=== PATIENT | male | born 1940 | race Caucasian/White ===

== ENCOUNTER 2018-03-24 08:16 | Inpatient (IN) | payer OTHER ==
[~2018-03-24] VITALS: Ht 182.9 cm; Wt 104.8 kg
[~2018-03-24 08:16] MED LIST: LOW DOSE ASPIRI81 M1 PO; NITROGLYCERIN0.4 MG SL; TOPROL XL25 MG PO; ZOCOR40 MG PO
[2018-03-24 08:52] VITALS: BP 142/67
--- NOTE | 2018-03-24 11:19 | EKG ---
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1940 Requested By: Ismael Marshall Order Number: [id number] Reading MD: Ismael Marshall Measurements Intervals [place] Rate: 65 P: [place]: QRS: 52 QRSD: 125 T: 1 QT: 388 QTc: 404 Interpretive Statements Atrial flutter IVCD, consider atypical RBBB ST elevation, consider inferior injury No previous ECG available for comparison Electronically Signed On 03-24-2018 11:19:17 CDT by Ismael Marshall [email or web address] <ELECTRONICALLY SIGNED> By: Ismael Marshall MD, [facility] 03/24/18 1119 6 6 Ismael Marshall MD, [facility] /EPI
[2018-03-24 12:00] VITALS: BP 144/82
--- NOTE | 2018-03-24 13:37 | NUR ---
PT A DIRECT ADMIT AROUND 0830 PT IS ALERT AND ORIENTED X 4 PT DENIES PAIN OR SOA ON RA, PT IS UP AD NASIR PT IS NOT A FALL RISK, PT IS AFLUTTER ON MONITOR, PT IS ADMITTED FOR SOTALOL LOADING GAVE FIRST DOSE OF SOTALOL, CARDIOLOGY CONSULTED ORDERED PT FOR JUDITH/CARDIOVERSION ON MARCH 26, WILL CONTINUE TO MONITOR
[2018-03-24 16:00] VITALS: BP 129/58
[2018-03-24 20:00] VITALS: BP 119/80
[2018-03-25] VITALS: BP 124/69
[2018-03-25 04:00] VITALS: BP 146/59
--- NOTE | 2018-03-25 07:25 | NUR ---
ASSUMED PT CARE AT 1930. NURSING ASSESSMENT COMPLETED AT START OF SHIFT. PT VOICED NO CONCERNS. 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 PT UP AD NASIR. CALL LIGHT WITHIN REACH. HOURLY ROUNDING COMPLETED.
[2018-03-25 08:00] VITALS: BP 152/86
--- NOTE | 2018-03-25 11:04 | EKG ---
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1940 Requested By: Ismael Marshall Order Number: [id number] Reading MD: Jose L Padgett Measurements Intervals Catherine Rate: 77 P: [place]: QRS: 89 QRSD: 117 T: 12 QT: 376 QTc: 426 Interpretive Statements Atrial flutter with varied AV block, Nonspecific intraventricular conduction delay Baseline wander in lead(s) V1 Compared to ECG 03/24/2018 09:17:32 No significant changes Electronically Signed On 03-25-2018 11:03:52 CDT by Jose L Padgett [email or web address] <ELECTRONICALLY SIGNED> By: Jose L Padgett MD, [facility] 03/25/18 1103 1 08 Jose L Padgett MD, [facility] /EPI
[2018-03-25 11:14] VITALS: BP 132/89
--- NOTE | 2018-03-25 13:15 | NUR ---
ASSUMED PT CARE AT 0700 PT IS ALERT AND ORIENTED X 4 PT DENIES PAIN OR SOA ON RA, PT IS UP AD NASIR PT IS NOT A FALL RISK, PT IS AFLUTTER ON THE MONITOR, PT WILL BE NPO AT MIDNIGHT FOR PROCEDURE TOMORROW, PT IS PLESANT AND COOPERATIVE, WILL CONTINUE TO MONITOR
--- NOTE | 2018-03-25 15:12 | NUR ---
Pt is A&O. Resides at home with his . Active and independent. No DME. Hx of HH in 2010. No hx of SNF. Goal is to dc home, no needs anticipated.
[2018-03-25 15:15] VITALS: BP 105/71
[2018-03-25 20:00] VITALS: BP 131/78
[2018-03-26] VITALS (16 sets, daily range): BP systolic 98–174; BP diastolic 59–108
--- NOTE | 2018-03-26 03:56 | NUR ---
ASSUMED PT CARE AT 1930. NURSING ASSESSMENT COMPLETED AT START OF SHIFT. PT VOICED NO CONCERNS. 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 DENIES CHEST PAIN. NPO AFTER MIDNIGHT FOR JUDITH WITH CARDIOVERSION. CALL LIGHT WITHIN REACH.
--- NOTE | 2018-03-26 07:30 | NUR ---
CHANGE OF SHIFT, BEDSIDE REPORT GIVEN PATIENT SEEN IN BED ANS REATING ASSUMED PATIENT CARE
[2018-03-26 08:59] LABS: HEMATOCRIT 49.5 % (42.0-52.0); HEMOGLOBIN 16.6 gm/dL (14.0-18.0); MCH 30.5 pg (26.0-34.0); MCHC 33.5 g/dL (28.0-37.0); MCV 91.1 fL (80.0-100.0); MPV 8.9 fl. (7.2-11.1); RBC 5.43 mil/uL (4.50-6.00); RDW-CV 13.9 % (10.5-14.5); WBC 6.9 thou/uL (4.0-11.0)
[2018-03-26 09:11] LABS: CALCIUM 8.8 mg/dL (8.5-10.1); CREATININE 1.3 mg/dL (0.6-1.3); POTASSIUM 3.8 mmol/L (3.5-5.1)
[2018-03-26 09:16] LABS: ALBUMIN 3.6 g/dL (3.4-5.0); TOTAL PROTEIN 6.9 g/dL (6.4-8.2)
[2018-03-26 09:17] LABS: APTT 30.2 Seconds (25.0-31.3); INR 1.1; PROTIME 11.6 Seconds (9.20-11.50)
--- NOTE | 2018-03-26 12:37 | EKG ---
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1940 Requested By: Ismael Marshall Order Number: [id number] Reading MD: Ismael Marshall Measurements Intervals [place] Rate: 96 P: [place]: QRS: 68 QRSD: 119 T: 55 QT: 412 QTc: 521 Interpretive Statements Atrial flutter Incomplete right bundle branch block Probable anteroseptal infarct, old ST elevation, consider inferior injury Compared to ECG 03/25/2018 08:12:59 Incomplete right bundle-branch block now present Myocardial infarct finding now present ST (T wave) deviation now present Intraventricular conduction delay no longer present Electronically Signed On 03-26-2018 12:37:03 CDT by Ismael Marshall [email or web address] <ELECTRONICALLY SIGNED> By: Ismael Marshall MD, FACC 03/26/18 1237 08 08 Ismael Marshall MD, FACC /EPI
--- NOTE | 2018-03-26 14:35 | TEE ---
[place] [address] TRANSESOPHAGEAL ECHOCARDIOGRAM Name: KENDALL WALKER Room: [address] IN [facility]#: [id number] Admission: 03/24/18 Attend Phys: Ismael Marshall, Discharge: Date of : 42 Date of Service: 03/26/18 1434 Report #: [id number] THIS REPORT FOR: //name// APPROVED REPORT Study performed: 03/26/2018 12:33:07 EXAM: Transesophageal Echocardiogram Patient Location: In-Patient Room #: [facility] Status: routine BSA: 2.27 HR: 86 bpm BP: 144/68 mmHg Rhythm: Atrial Fibrillation Other Information Study Quality: Good Indications Atrial Fibrillation Echo Enhancing Agent Indication: Rule out Shunt Agent(s) / Amount(s) Used: Agitated Saline 10 cc Procedure After obtaining informed consent, patient underwent transesophageal echo in the [employer]. Type of Sedation : Conscious Sedation Sedation was administered by Agueda Correa RN. Sedation start time: 1256 Case end Time: 1309 Sedation was achieved intravenously with: Propofol (250) Transesophageal probe was inserted and advanced into esophagus without difficulty by Ismael Marshall MD, FACC. Echo enhancement indication: R/O Septal defect. Echo enhancement agent administered: Agitated Saline The JUDITH was performed without complications. Synchronized Cardioversion acheived with 250 Joules after 1 attempt(s). Rhythm following Synchronized Cardioversion: Normal Sinus Rhythm Throughout the procedure, the blood pressure, pulse oximetry, cardiac rhythm, and rate were monitored. The patient tolerated the procedure without [place] [address] TRANSESOPHAGEAL ECHOCARDIOGRAM Name: KENDALL WALKER Room: [address] [facility].#: [id number] Admission: 03/24/18 Attend Phys: Ismael Marshall, Discharge: Date of : 42 Date of Service: 03/26/18 1434 Report #: [id number] from conscious sedation was uneventful and vital signs were stable. Left Ventricle The left ventricle is normal size. Paradoxical septal motion consistent with post-operative state.Global LV dysfunction, mild. There is normal left ventricular wall thickness. Left ventricular systolic function is mildly decreased. No left ventricle thrombus noted on this study. LVEF is 45-50%. Right Ventricle The right ventricle is normal size. The right ventricular systolic function is normal. Atria No thrombus is visualized in the left atrium or appendage.Doppler evaluation reveals flutter waves. Interatrial septum is intact without evidence of ASD or PFO. Right atrium is dilated. Aortic Valve The aortic valve is normal in structure. No aortic regurgitation is present. There is no aortic valvular stenosis. Mitral Valve The mitral valve is normal in structure. Moderate mitral regurgitation. No evidence of mitral valve stenosis. Tricuspid Valve The tricuspid valve is normal in structure. Mild to moderate tricuspid regurgitation. Pulmonic Valve The pulmonary valve is normal in structure. There is no pulmonic valvular regurgitation. Great Vessels The aortic root is normal in size. Pericardium There is no pericardial effusion. <Conclusion> LVEF is 45-50%. Paradoxical septal motion consistent with post-operative state.Global LV dysfunction, mild. [place] [address] TRANSESOPHAGEAL ECHOCARDIOGRAM Name: KENDALL WALKER Room: [address] IN M.R.#: [id number] Admission: 03/24/18 Attend Phys: Ismael Marshall, Discharge: Date of : 42 Date of Service: 03/26/181433 Report #: [id number] No evidence of mitral valve stenosis. Mild to moderate tricuspid regurgitation. Interatrial septum is intact without evidence of ASD or PFO. No thrombus is visualized in the left atrium or appendage.Doppler evaluation reveals flutter waves. <ELECTRONICALLY SIGNED> By: Ismael Marshall MD, [facility] 03/26/18 1434 33 1434 Ismael Marshall MD, FACC /INF
[2018-03-26] MEDS ORDERED: XARELTO20 MG PO (16:34)
[2018-03-26] MEDS ORDERED: SORINE 80 MG TA80 M1 PO (16:35)
--- NOTE | 2018-03-26 16:41 | EKG ---
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1940 Requested By: Ismael Marshall Order Number: [id number] Reading MD: Ismael Marshall Measurements Intervals [place] Rate: 71 P: 68 OK: 234 QRS: 48 QRSD: 125 T: 44 QT: 436 QTc: 474 Interpretive Statements Sinus rhythm Prolonged OK interval Left atrial enlargement IVCD, consider atypical RBBB Compared to ECG 03/26/2018 08:00:21 First degree AV block now present Atrial abnormality now present Atrial flutter no longer present Incomplete right bundle-branch block no longer present Myocardial infarct finding no longer present ST (T wave) deviation no longer present Electronically Signed On 03-26-2018 16:41:12 CDT by Ismael Marshall [email or web address] <ELECTRONICALLY SIGNED> By: Ismael Marshall MD, FACC 03/26/18 1641 1318 1318 Ismael Marshall MD, FACC /EPI
[2018-03-26] MEDS ORDERED: SYNTHROID75 MCG PO (17:17)
--- NOTE | 2018-03-26 17:49 | NUR ---
PATIENT DCD TO HOME ALL DC INFORMATION GIVEN AND ACKNOWLEDGED AND SIGNED COPIES GIVEN IV AND HEART MONITOR REMOVED PERSOAL BELONGINGS RETURNED PATIENT ASSISTED OUT AMBULATORY TO WAITING CAR
--- NOTE | 2018-03-30 09:11 | CARD ---
[address] [address] CARDIAC CATH REPORT Name: KENDALL WALKER Room: [address] IN M.R.#: [id number] Admission: 03/24/18 Attend Phys: Ismael Marshall MD Discharge: 03/26/18 Date of : 42 Report #: [id number] THIS REPORT FOR: //name// CC: Ismael Andrew PROCEDURES PERFORMED: JUDITH-guided cardioversion. INDICATIONS: The patient is a 78-year-old male with a history of CABG, who presents after outpatient loading with Eliquis and he required inpatient loading for sotalol. This is day #3. He had been in atrial flutter for seemingly more than 2 months, prior to his initiation of anticoagulation, so he required a transesophageal echocardiogram. His procedure was performed under anesthesia-controlled conscious sedation. Please see their record for dosing and protocol for hemodynamic monitoring that was performed by them. His JUDITH report is under separate cover and dictation. This dictation is for his cardioversion. DESCRIPTION OF PROCEDURE: After his transesophageal echocardiogram was performed, we proceeded with a synchronized cardioversion, 250 joules, biphasic was utilized to convert him from atrial flutter with heart rates in the 110 range to sinus rhythm, heart rates in the 60s. His followup ECG showed a QTC of less than 455 milliseconds. He is on sotalol therapy. IMPRESSION: 1. Atrial flutter. 2. Mild left ventricular dysfunction. 3. No intracardiac thrombus. 4. Successful direct current cardioversion. <ELECTRONICALLY SIGNED> By: Lefty Pierre MD, FACC 03/30/18 0911 1434 [id number] Marshall MD, FACC /nt
--- NOTE | 2018-03-30 09:11 | H ---
[place] [address] HISTORY AND PHYSICAL Name: KENDALL WALKER Room: [address] IN M.R.#: [id number] Admission: 03/24/18 Attend Phys: Ismael Marshall MD Discharge: 03/26/18 Date of : 42 Report #: [id number] THIS REPORT FOR: //name// CC: Ismael Andrew PRIMARY CARE PHYSICIAN: Cedric Andrew M.D. CHIEF COMPLAINT: Shortness of breath, atrial flutter. HISTORY OF PRESENT ILLNESS: The patient is a 78-year-old male who presented initially as an outpatient to our office with shortness of breath and atrial flutter with heart rates in the 120s. He was started on Xarelto that day and placed on oral Cardizem, but he did not convert and follow up. He still has some dyspnea with exertion. So, the plan was for an elective sotalol load with JUDITH-guided cardioversion. Going back on historical data from the patient's initial examination, he has probably been in atrial flutter for about 2-3 months. He has not had any neurologic symptoms such as numbness, weakness, slurred speech or weakness. He has numerous atrial fib and atrial flutter risk factors. He has a remote history of coronary artery disease, but denies chest pain or pressure. PAST MEDICAL HISTORY: He has a history of prior bypass surgery. In 2010, he had a 5-vessel CABG, MASSEY to LAD, vein graft to diagonal 1, vein graft to obtuse marginal and vein graft to PDA and PLB. He has moderate bilateral carotid stenoses in the 50% to 69% stenoses bilaterally. No previous stroke. His ejection fraction was 50% to 55% on echocardiogram 03/2017. He has hypertension. MEDICATIONS: His home medications include Xarelto 20 mg daily, baby aspirin, atorvastatin 20 mg daily, Cartia XT 180 mg in the morning and 120 mg in the evening, finasteride 5 mg, Synthroid 75 mcg daily and carvedilol 6.25 mg p.o. b.i.d. SOCIAL HISTORY: He is . There is no tobacco or ethanol history. FAMILY HISTORY: Positive for heart disease. Mother had heart attack. REVIEW OF SYSTEMS: GASTROINTESTINAL: No hematemesis or melena. GENITOURINARY: No dysuria or hematuria. CARDIOVASCULAR: Positive dyspnea on exertion. No chest discomfort, no orthopnea, no PND. GENERAL: [place] [address] HISTORY AND PHYSICAL Name: KENDALL WALKER Room: [address] [place] [facility]#: [id number] Admission: 03/24/18 Attend Phys: Ismael Marshall MD Discharge: 03/26/18 Date of : 42 Report #: [id number] SKIN: No rashes. NEUROLOGIC: No symptoms of weakness or fatigue. PHYSICAL EXAMINATION: VITAL SIGNS: Blood pressure 142/67, pulse is 80 in atrial flutter on telemetry and respiratory rate 16. GENERAL: This is a pleasant elderly male who is alert, oriented, in no apparent distress. HEENT: Eyes are intact. No facial asymmetry. NECK: Supple. No jugular venous distention. CARDIOVASCULAR EXAMINATION: Regular. I cannot hear a murmur or rub. ABDOMEN: Soft, nontender. EXTREMITIES: No peripheral edema. SKIN: No rashes. LABORATORY DATA: His hemoglobin is 16.6, white blood count is 7.9 and platelet count is 185,000. Sodium is 145, potassium is 4.5, chloride is 108, CO2 is 27, BUN is 9, creatinine is 1.2 and glucose is 106. INR is 1.0. In 2016, nuclear stress test was negative for ischemia. Ejection fraction was 74%. IMPRESSION AND PLAN: 1. Dyspnea. I suspect this is related to mild congestive heart failure secondary to his atrial arrhythmia. He has improved significantly with rate control, but still has overall exertional shortness of breath and I think he would feel better in sinus rhythm. So, because of his prolonged episode, we need to load him with sotalol before out planned JUDITH-guided cardioversion. 2. Atrial flutter. He will require JUDITH before his procedure because he had been having symptoms for at least a month prior to initial therapy and anticoagulation initiation. He has a CHADS-VASc score of 4. We will continue with Xarelto. 3. Hypertension. This is stable. 4. Coronary artery disease. He reports no angina. I suspect his symptoms are predominantly his arrhythmia. 5. Hypertension. Continue with his home therapy. 6. Carotid stenosis. He is asymptomatic and we will continue with surveillance. <ELECTRONICALLY SIGNED> By: Lefty Pierre MD, FACC 03/30/18 0911 0956 1414Ismael Marshall MD, FACC /nt
--- NOTE | 2018-04-03 17:39 | D ---
[facility] [address] [place] [address] DISCHARGE SUMMARY Name: KENDALL WLAKER Byron Room: [address] IN M.R.#: [id number] Admission: 03/24/18 Attend Phys: Ismael Marshall MD Discharge: 03/26/18 Date of : 42 Report #: [id number] THIS REPORT FOR: //name// CC: Ismael Andrew DATE OF SERVICE: 03/26/2018 FINAL DIAGNOSES: 1. Atrial flutter. 2. 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 3. History of coronary artery bypass graft surgery. 4. Successful JUDITH-guided cardioversion. 5. Sotalol loading. HOSPITAL SUMMARY: The patient is a 78-year-old male who presented as an outpatient with increasing shortness of breath and tachycardia, was found to be in atrial fibrillation. His diagnosis was made late; he had been having symptoms for several days prior to initial presentation. He was placed on oral anticoagulation immediately, but because of the duration of the atrial flutter was not known, he had to go a JUDITH before proceeding with an elective cardioversion today. This was performed under anesthesia. He has mild LV dysfunction, but this is likely reversible. He has a history of coronary artery disease, but denies chest pain and ruled out for myocardial infarction. DISCHARGE MEDICATIONS: His discharge medications will include sotalol 80 mg p.o. b.i.d., Xarelto 20 mg daily, Synthroid 0.075 mg daily, atorvastatin 20 mg daily and aspirin 81 mg. We did discontinue his other beta nereyda metoprolol. He will discontinue Cartia. FOLLOWUP: He will follow up with me in 4 weeks. PROCEDURE PERFORMED: JUDITH-guided cardioversion. <ELECTRONICALLY SIGNED> By: Lefty Pierre MD, FACC 04/03/18 1739 1624 1158Ismael Marshall MD, FACC /nt
== END 2018-03-26 17:50 | disposition home or self-care (01) | DRG 308 ==
LOC: M.2W 08:16
PROVIDERS: ADMIT Internal Medicine Cardiovascular Disease
PROC: B24BZZ4 Ultrasonography of Heart with Aorta, Transesophageal (ICD-10-PCS; principal; 2018-03-24)
PROC: 5A2204Z Restoration of Cardiac Rhythm, Single (ICD-10-PCS; principal; 2018-03-24)
DX: I48.92 Unspecified atrial flutter (principal); I50.33 Acute on chronic diastolic (congestive) heart failure; D68.59 Other primary thrombophilia; I11.0 Hypertensive heart disease with heart failure; I25.10 Atherosclerotic heart disease of native coronary artery without angina pectoris; I65.29 Occlusion and stenosis of unspecified carotid artery; I42.9 Cardiomyopathy, unspecified; R00.0 Tachycardia, unspecified; Z28.21 Immunization not carried out because of patient refusal; Z95.1 Presence of aortocoronary bypass graft; Z82.49 Family history of ischemic heart disease and other diseases of the circulatory system; Z79.01 Long term (current) use of anticoagulants; Z79.899 Other long term (current) drug therapy

== ENCOUNTER → 2021-06-12 | Outpatient (CLI) | payer OTHER ==
[~2021-06-12] MED LIST changes: +SORINE 80 MG TA80 M1 PO; +SYNTHROID75 MCG PO; +XARELTO20 MG PO
--- NOTE | 2021-06-12 11:13 | 2DMMODE ---
[place] [address] 2 D/M-MODE ECHOCARDIOGRAM Name: KENDALL WALKER Room: [facility]#: [id number] Admission: 06/12/21 Attend Phys: Lefty Pierre, Discharge: Date of : 42 Date of Service: 06/12/21 1112 Report #: [id number] THIS REPORT FOR: cc: Cedric Andrew MD, Thomas W. MD Holkins, John M. MD [facility] ~ APPROVED REPORT Study performed: 06/12/2021 11:08:26 EXAM: Comprehensive 2D, Doppler, and color-flow Echocardiogram Patient Location: Out-Patient BSA: 2.24 HR: 50 bpm BP: 145/82 mmHg Other Information Study Quality: Good Indications Atrial Fibrillation CAD 2D Dimensions IVSd: 14.77 (7-11mm) LVOT Diam: 20.03 (18-24mm) LVDd: 45.99 mm PWd: 12.37 (7-11mm) Ascending Ao: 29.98 (22-36mm) LVDs: 29.52 (25-40mm) Aortic Root: 35.91 mm Volumes Left Atrial Volume (Systole) LA ESV Index: 16.80 mL/m2 Aortic Valve AoV Peak Sulaiman.: 0.84 m/s AO Peak Gr.: 2.80 mmHg LVOT Max P.00 mmHg AO Mean Gr.: 1.53 mmHg LVOT Mean P.01 mmHg LVOT Max V: 0.71 m/s AO V2 VTI: 20.67 cm LVOT Mean V: 0.46 m/s MELYSSA (VTI): 2.97 cm2 LVOT V1 VTI: 19.47 [place] [address] 2 D/M-MODE ECHOCARDIOGRAM Name: KENDALL WALKER Room: [facility]#: [id number] Admission: 06/12/21 Attend Phys: Lefty Pierre, Discharge: Date of : 42 Date of Service: 06/12/21 1112 Report #: [id number] E/A Ratio: 0.90 MV Decel. Time: 292.14 ms MV E Max Sulaiman.: 0.64 m/s MV PHT: 84.72 ms MVA (PHT): 2.60 cm2 TDI E/Lateral E': 5.82 E/Medial E': 9.14 Medial E' Sulaiman.: 0.07 m/s Lateral E' Sulaiman.: 0.11 m/s Pulmonary Valve PV Peak Sulaiman.: 1.23 m/s PV Peak Gr.: 6.01 mmHg Tricuspid Valve RAP Estimate: 5.00 mmHg TR Peak Gr.: 16.80 mmHg RVSP: 21.80 mmHg PA Pressure: 21.80 mmHg Left Ventricle The left ventricle is normal size. There is normal LV segmental wall motion. Mild concentric left ventricular hypertrophy. Left ventricular systolic function is normal. The left ventricular ejection fraction is within the normal range. LVEF is 55%. Grade I - abnormal relaxation pattern. Right Ventricle The right ventricle is normal size. The right ventricular systolic function is normal. Atria The left atrium size is normal. The right atrium size is normal. Aortic Valve Mild aortic valve sclerosis. No aortic regurgitation is present. There is no aortic valvular stenosis. Mitral Valve The mitral valve is normal in structure. Mild mitral regurgitation. No evidence of mitral valve stenosis. Tricuspid Valve The tricuspid valve is normal in structure. Mild [place] [address] 2 D/M-MODE ECHOCARDIOGRAM Name: KENDALL WALKER [id number] Admission: 06/12/21 Attend Phys: Lefty Pierre, Discharge: Date of : 42 Date of Service: 06/12/21 1112 Report #: [id number] Pulmonic Valve The pulmonary valve is normal in structure. Mild pulmonic regurgitation. Great Vessels The aortic root is normal in size. IVC is normal in size and collapses >50% with inspiration. Pericardium There is no pericardial effusion. <Conclusion> The left ventricle is normal size. Mild concentric left ventricular hypertrophy. Left ventricular systolic function is normal. The left ventricular ejection fraction is within the normal range. LVEF is 55%. Grade I - abnormal relaxation pattern. The right ventricle is normal size. The left atrium size is normal. Mild aortic valve sclerosis. No aortic regurgitation is present. There is no aortic valvular stenosis. The mitral valve is normal in structure. Mild mitral regurgitation. The tricuspid valve is normal in structure. Mild tricuspid regurgitation. IVC is normal in size and collapses >50% with inspiration. There is no pericardial effusion. There is normal LV segmental wall motion. <ELECTRONICALLY SIGNED> By: Adelfo Madrid MD, FACC 06/12/21 111 11 11 Adelfo Madrid MD, FACC /INF
--- NOTE | 2021-06-12 13:33 | CARDNUC ---
[place] [address] CARDIAC NUCLEAR IMAGING REPORT Name: KENDALL WALKER Room: [facility]#: [id number] Admission: 06/12/21 Attend Phys: Lefty Pierre, Discharge: Date of : 42 Date of Service: 06/12/21 1332 Report #: [id number] THIS REPORT FOR: cc: Cedric Andrew MD, Thomas W. MD Liston, Michael J. MD [facility] ~ APPROVED REPORT Imaging Protocol: Rest Tc-99m/Stress Tc-99m 1 day Study performed: 06/12/2021 09:03:02 Indication: Atrial Fibrillation Patient Location: Out-Patient Stress Nurse: JAVIER Enciso Tech:ISAIAH Fisher Ht: 6 ft 0 in Wt: 230 lbs BSA: 2.26 m2 BMI: 31.19 Medical History Medical History: Atrial Fibrillation, CAD s/p CABG, Carotid artery disease, HTN, Hyperlipidemia Medications: atorvastatin, xarelto, sotalol Allergies: No known drug allergies Cardiac Risk Factors: Age, FHX of CAD, HTN, Hyperlipidemia, PVD Previous Cardiac Procedures: CABG Exercise History: Indeterminate Resting Data Rest SPECT myocardial perfusion imaging was performed in supine position 30 minutes following the intravenous injection of 10.0 mCi of Tc-99m Sestamibi. Time of rest injection: 0755 Date: 06/12/2021 The images were gated to evaluate regional wall motion and calculate left ventricular ejection fraction. Administration Route: IV Pharmacologic Stress Pharmacologic stress test was performed by injecting Regadenoson 0.4 mg IV push over 10-15 seconds immediately followed by the intravenous injection of 34.2 mCi of Tc-99m Sestamibi. Time of stress injection: 0900 Date: 06/12/2021 Administration Route: [place] [address] CARDIAC NUCLEAR IMAGING REPORT Name: KENDALL WALKER [id number] Ad[facility]: 06/12/21 Attend Phys: Lefty Pierre, Discharge: Date of : 42 Date of Service: 06/12/21 1332 Report #: [id number] Gated Stress SPECT was performed 40 minutes after stress injection. The images were gated to evaluate regional wall motion and calculate left ventricular ejection fraction. Stress Test Details Stress Test: Pharmacologic stress testing performed using 0.4 mg of regadenoson per 5 mL given IV over 10 seconds. Reason for pharmacologic stress test: a fib on sotalol. HR Max Heart Rate (APMHR): 140 bpm Resting HR: 53 bpm Target HR (85% APMHR): 119 bpm Max HR Achieved: 78 bpm % of APMHR: 55 Recovery HR: 76 bpm BP Resting BP: 145/82 mmHg Max BP: 141/55 mmHg Recovery BP: 164/79 mmHg ECG Resting ECG: Sinus Bradycardia Stress ECG: Sinus Rhythm ST Change: None Arrhythmia: None Recovery ECG: Sinus Rhythm Recovery ST Change: None Recovery Arrhythmia: None Clinical Reason for Termination: Completed protocol The patient tolerated Lexiscan infusion without significant cardiac symptoms. Stress ECG Conclusion The baseline twelve-lead EKG shows sinus bradycardia without significant ST segment or T wave abnormality. EKGs obtained during and post Lexiscan infusion show sinus rhythm with no significant ST segment or T wave changes when compared to baseline. There were no stress-induced arrhythmias. Study Quality Study: Good Artifact: [place] [address] CARDIAC NUCLEAR IMAGING REPORT Name: KENDALL WALKER Room: [facility]#: [id number] Admission: 06/12/21 Attend Phys: Lefty Pierre, Discharge: Date of : 42 Date of Service: 06/12/21 1332 Report #: [id number] At rest, the left ventricular ejection fraction was 63%.. Post stress, the left ventricular ejection was 68%.. TID = 1.05. Perfusion Perfusion images obtained at rest and post Lexiscan stress show uniform uptake of the radioisotope throughout the myocardium. There were no defects to suggest infarct or ischemia. Wall Motion Global LV systolic function is normal. There is a septal wall motion abnormality noted of uncertain significance. Nuclear Conclusion ECG Findings: negative for ischemia Clinical Findings: negative for ischemia Nuclear Findings: negative for ischemia Exercise Capacity: not assessed Left Ventricular Function: Preserved Risk Study: low Perfusion images show no defect to suggest infarct or ischemia. Left ventricular systolic function is preserved. This is a low risk study. <Conclusion> The baseline twelve-lead EKG shows sinus bradycardia without significant ST segment or T wave abnormality. EKGs obtained during and post Lexiscan infusion show sinus rhythm with no significant ST segment or T wave changes when compared to baseline. There were no stress-induced arrhythmias. <ELECTRONICALLY SIGNED> By: Lefty Pierre MD, FACC 06/12/211331 31 31 Lefty Pierre MD, FACC /INF
== END ==
LOC: M.CRD 05-15 15:08 → M.NUC 07:15
PROVIDERS: ATTEND Internal Medicine Cardiovascular Disease
DX: I08.8 Other rheumatic multiple valve diseases (principal); I25.10 Atherosclerotic heart disease of native coronary artery without angina pectoris; I48.92 Unspecified atrial flutter